=== PATIENT | female | born 1990 | race Caucasian/White ===

== ENCOUNTER 2019-07-12 20:47 | Emergency (ER) | payer OTHER, MEDICAID, SELFPAY ==
[2019-07-12 20:53] VITALS: BP 139/69; PULSE 87; RESP 16; TEMP 36.6; O2SAT 99
--- NOTE | 2019-07-12 21:58 | ED.GENADULT ---
HPI - General Adult General Chief complaint: Ear Stated complaint: lt ear pain Time Seen by Provider: 07/12/19 20:52 Source: patient Mode of arrival: Ambulatory Limitations: no limitations History of Present Illness HPI narrative: 28-year-old female here for evaluation of left ear pain. She was seen in outside facility earlier today and was given a prescription for ear drops. She is allergic to sulfa drugs. She states that she went home and found that there was sulfa in these ear drops. When she put him anterior it did sting her year. Denies any sore throat or sinus congestion. Related Data Allergies Allergy/AdvReac Type Severity Reaction Status Date / Time Penicillins Allergy Severe Wheezing Verified 07/12/19 20:57 Sulfa (Sulfonamide Allergy Severe burning Verified 07/12/19 20:57 Antibiotics) sensation Review of Systems Constitutional Constitutional: Denies fever(s) Eyes Eyes: Denies blurry vision and Denies change in vision ENT Ears, Nose, Mouth, and Throat: Denies neck pain and Denies sore throat Comments: Left ear pain Cardiovascular Cardiovascular: Denies chest pain and Denies dyspnea Respiratory Respiratory: Denies dyspnea Gastrointestinal Gastrointestinal: Denies abdominal pain Musculoskeletal Musculoskeletal: Denies neck pain Integumentary/Breasts Skin/Breast: Denies lesions and Denies rash Neurologic Neurologic: Denies behavioral changes Psychiatric Psychiatric: Denies behavioral changes Patient History Medical History Patient denies medical problems (Acute) Social History Smoking Status: Current every day smoker Smoking Status: Current every day smoker alcohol intake frequency: 3 or more drinks per day Substance Use Type: marijuana Exam Initial Vital Signs Initial Vital Signs: Vital Signs Temperature 97.9 F 07/12/19 20:53 Pulse Rate 87 07/12/19 20:53 Respiratory Rate 16 07/12/19 20:53 Blood Pressure 139/69 07/12/19 20:53 Pulse Oximetry 99 07/12/19 20:53 Const General: cooperative, comfortable and well developed Orientation: alert, awake and oriented x3 HENMT Head: normal to inspection and normocephalic Ears: TM normal on the right and EAC abnormal edema on the left Nose: external nose normal Resp Effort & Inspection: normal respiratory effort Auscultation: clear to auscultation bilaterally Cardio Rate: regular rate Rhythm: regular rhythm Skin Lesions: no lesions Rashes: no rashes Neuro General: alert and awake Cognition: normal cognition Speech: speech normal Extrem General: normal to inspection and capillary refill normal Course Orders Ordered: Discontinued Medications Ciprofloxacin/Dexamethasone (Ciprodex Otic Susp) 4 drops EAR-LEFT NOW ONE Stop: 07/12/19 21:59 Last Admin: 07/12/19 22:14 Dose: 4 drops Documented by: DOMINIC Vital Signs Vital signs: Vital Signs - 8 hr 07/12/19 20:53 07/12/19 22:32 Temperature 97.9 F Pulse Rate 87 70 Respiratory Rate 16 Blood Pressure 139/69 125/62 Pulse Oximetry 99 97 Medical Decision Making MDM Narrative Medical decision making narrative: Right external auditory canal and tympanic membrane unremarkable. Left external auditory canal swollen shut to the point to her could not see the tympanic membrane. Consistent with otitis media. Any year wick was placed. Ciprodex drops were administered. Will patient was sent home with Ciprodex given to her here in the ER with instructions on how to take it. We did discuss the ear wicking care instructions. Suspect otitis externa. Patient was given return precautions and follow-up instructions. She expressed understanding and agreement with plan. Discharge Plan Departure Patient Disposition: Home Clinical Impression: Otitis externa Qualifiers: Otitis externa type: unspecified type Chronicity: acute Laterality: left Qualified Code(s): H60.502 - Unspecified acute noninfective otitis externa, left ear Discharge Date/Time: 07/12/19 22:33 Instructions: DI for Otitis Externa Activity Restrictions/Additional Instructions: Stop the antibiotics your given yesterday and start taking the new antibiotics you were given a bottle for during this visit. Put 3 drops in your left ear 2 times a day for the next 7 days. Contact your primary provider for follow-up.
[2019-07-12] MEDS: CIPROFLOXACIN/DEXAMETH OTIC SUSP 4 DROPS EAR-LEFT (22:14)
[2019-07-12 22:32] VITALS: BP 125/62; PULSE 70; O2SAT 97
== END 2019-07-12 22:33 | disposition home or self-care (01) ==
PROVIDERS: Emergency Provider Emergency Medicine
DX: H60.502 Unspecified acute noninfective otitis externa, left ear (principal)
CPT/HCPCS: 99281; 99282

== ENCOUNTER 2020-01-20 09:36 | Emergency (ER) | payer OTHER, MEDICAID, SELFPAY ==
[2020-01-20 09:47] VITALS: BP 151/63; PULSE 81; RESP 16; TEMP 37.2; O2SAT 100
--- NOTE | 2020-01-20 10:53 | ED.EAR ---
HPI - Ear Problem <Sandy Street PA-C - Last Filed: 01/20/20 11:55> General Chief complaint: Ear Stated complaint: BILATERAL EAR INFECTION Time Seen by Provider: 01/20/20 10:51 Source: patient Mode of arrival: Ambulatory History of Present Illness HPI Narrative: Is a 29-year-old woman current 3/4 pack-a-day smoker with 14 year smoking history with a history bilateral ear problems including otitis and otitis media who reports to the emergency department complaining of ongoing ear pain changes in her hearing, tinnitus, pain under her ears and the back of her chin, and in her frontal and maxillary sinuses which is chronic requesting referral to ear nose and throat. She has ongoing ear pain and discomfort on and off over the last 6 months she was prescribed some Ciprodex and she thinks doxy previously because of her allergies to sulfa and penicillin and this did give her some relief for a few weeks but her symptoms returned. 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 She reports she was previously referred to [facility] by her former primary care physician, but the ENT did not receive the referral and she did not get scheduled in, then COVID happened and her PCP left the practice so she has not been able to reestablish care yet. She also notes the last couple of months she has felt like she has had frequency of urination and urgency with urination. She has had a reduced appetite lately but she lost a couple friends in the last couple months and has been a little bit down in coping with this and under stress because of this and starting a new job she also recently got engaged which is new. She denies nausea, vomiting, fever, chills, shortness of breath, chest pain, abdominal pain, sore throat, neck pain, polydipsia, polyphagia or any other symptoms. MD Complaint: ear pain and decreased hearing Location: bilateral Duration: intermittent Severity: moderate Relieving factors: nothing Exacerbating factors: nothing Associated symptoms ear: decreased hearing (Having trouble determining where sounds come from sometimes), neck pain (Top of the throat just below the ears) and tinnitus (Chronic most of her life) Treatment prior to arrival: none Related Data Previous Rx's Medication Instructions Recorded ciprofloxacin-dexamethasone 4 drop EAR-BOTH BID #7.5 ml 01/20/20 fluticasone propionate 1 spray NASAL BID #19.8 ml 01/20/20 Allergies Allergy/AdvReac Type Severity Reaction Status Date / Time acetaminophen [From Vicodin] Allergy Severe ITCHING Verified 01/20/20 09:50 hydrocodone [From Vicodin] Allergy Severe ITCHING Verified 01/20/20 09:50 Penicillins Allergy Severe Wheezing Verified 01/20/20 09:49 Sulfa (Sulfonamide Allergy Severe burning Verified 01/20/20 09:49 Antibiotics) sensation silver AdvReac Severe ITCHING Verified 01/20/20 09:50 Review of Systems <Sandy Street PA-C - Last Filed: 01/20/20 11:55> Review of Systems Narrative: GENERAL: Denies chills, fatigue, malaise, fever, sweats. HEENT: Positive for sinus pain, ear pain, hearing changes, tinnitus, negative for sore throat, difficulty swallowing, dizziness. RESPIRATORY: Positive for smoker's cough, negative for wheezing, hemoptysis, sputum. CARDIOVASCULAR: Denies chest pain, palpitations, orthopnea, edema, GASTROINTESTINAL: Denies nausea, vomiting, abdominal pain, diarrhea, constipation, melena. : Positive for frequency and urgency, negative for dysuria, incontinence, hematuria, urinary retention. MUSCULOSKELETAL: denies weakness, joint pain, or bony pain SKIN: Denies rash, skin lesions, or other NEUROLOGIC: Denies weakness, headache, numbness, change in speech, confusion, seizures, incoordination. PSYCHIATRIC: No concerning psychosocial issues. 12 point review of systems is negative except for those stated above Patient History <Sandy Street PA-C - Last Filed: 01/20/20 11:55> Medical History Patient denies medical problems (Acute) Social History Smoking Status: Current every day smoker Smoking Status: Current every day smoker alcohol intake frequency: 3 or more drinks per day Substance Use Type: marijuana Exam <Sandy Street PA-C - Last Filed: 01/20/20 11:55> Narrative Exam Narrative: GENERAL: 29 year old patient appears stated age. Well-nourished, well-developed patient, in mild distress. HEAD: Atraumatic. Normocephalic. EYES: Pupils equal round and reactive. Extraocular motions intact. No scleral icterus. No injection or drainage. ENT: Nose without bleeding, purulent drainage. Maxillary sinuses are nontender with palpation and percussion, frontal sinus on the right is nontender, frontal sinus on the left is slightly tender with percussion. Throat without erythema, tonsillar hypertrophy or exudate. External ear canal is slightly generally erythematous in appearance bilaterally, left tympanic membrane is normal in appearance with a possible effusion of non purulence at fluid behind the TM, right think panic membrane has some scarring on the superior border and again a possible effusion. Airway patent. NECK: Trachea midline. She has some tenderness of the tonsillar lymph nodes but they are non enlarged. Otherwise no cervical lymphadenopathy. CARDIOVASCULAR: Regular rate and rhythm without murmurs, gallops, or rubs. RESPIRATORY: Clear to auscultation. Breath sounds equal bilaterally. No wheezes, rales, or rhonchi. GASTROINTESTINAL: Abdomen soft, non-tender, nondistended. EXTREMITIES: No edema or joint tenderness. BACK: Nontender without deformity or crepitance. No flank tenderness. NEURO: AOx3. SKIN: No rash or erythema of visible areas Initial Vital Signs Initial Vital Signs: Vital Signs Temperature 98.9 F 01/20/20 09:47 Pulse Rate 81 01/20/20 09:47 Respiratory Rate 16 01/20/20 09:47 Blood Pressure 151/63 H 01/20/20 09:47 Pulse Oximetry 100 01/20/20 09:47 <Susan Lowry DO - Last Filed: 01/22/20 07:32> Initial Vital Signs Initial Vital Signs: Vital Signs Temperature 98.9 F 01/20/20 09:47 Pulse Rate 81 01/20/20 09:47 Respiratory Rate 16 01/20/20 09:47 Blood Pressure 151/63 H 01/20/20 09:47 Pulse Oximetry 100 01/20/20 09:47 Course <Sandy [address] PA-C - Last Filed: 01/20/20 11:55> Orders Ordered: ED Orders 01/20/20 11:26 Urine Microscopic Stat Vital Signs Vital signs: Vital Signs - 8 hr 01/20/20 09:47 Temperature 98.9 F Pulse Rate 81 Respiratory Rate 16 Blood Pressure 151/63 H Pulse Oximetry 100 <Susan Lowry DO - Last Filed: 01/22/20 07:32> Orders Ordered: ED Orders 01/20/20 11:26 Urine Microscopic Stat Vital Signs Vital signs: Vital Signs - 8 hr 01/20/20 09:47 Temperature 98.9 F Pulse Rate 81 Respiratory Rate 16 Blood Pressure 151/63 H Pulse Oximetry 100 Medical Decision Making <Sandy Street PA-C - Last Filed: 01/20/20 11:55> Differential Diagnosis Differential Diagnosis: otitis externa, otitis media, tinnitus, sinus infection, seasonal allergies Medical Records Medical records reviewed: Yes I reviewed the patient's medical records. Lab Data Lab results reviewed: Yes I reviewed the patient's lab results. Labs: Point of Care Testing Test Results Negative Glucose POC 95 Urine Dip Bedside Urine Glucose Negative Bedside Urine Bilirubin - Negative Bedside Urine Ketone - Negative Urine Specific [place] 1.010 Bedside Urine Occult Blood - Negative Bedside Urine pH 8.0 Bedside Urine Protein - Negative Bedside Urine Urobilinogen - Negative Bedside Urine Nitrite - Negative Bedside Urine Leukocytes - Negative Esterase Point of care testing: Point of Care Testing Test Results Negative Glucose POC 95 Urine Dip Bedside Urine Glucose Negative Bedside Urine Bilirubin - Negative Bedside Urine Ketone - Negative Urine Specific [place] 1.010 Bedside Urine Occult Blood - Negative Bedside Urine pH 8.0 Bedside Urine Protein - Negative Bedside Urine Urobilinogen - Negative Bedside Urine Nitrite - Negative Bedside Urine Leukocytes - Negative Esterase [facility] Narrative Medical decision making narrative: 29-year-old woman with a history of chronic ear discomfort and sinus discomfort presents to the emergency department requesting referral for ENT, as well as evaluation and antibiotics as warranted as her discomfort has been worsening significantly in the last month or so has been going on in general for 6 months now. Differential diagnoses considered include otitis externa, otitis media, tinnitus, sinus infection, seasonal allergies, UTI, , hyperglycemia. Evelyne is he is slightly erythematous she may have a mild otitis externa, she does have an effusion bilaterally, no evidence of an acute otitis media. No UTI based on POC urine, BG WNL, neg . Plan Ciprodex and fluticasone with referral to [facility]. Discussed the plan with the patient, all questions answered, discussed emergency return precautions. Discussed establishing care with a new PCP. <Susan DO Alen - Last Filed: 01/22/20 07:32> Lab Data Labs: Point of Care Testing Test Results Negative Glucose POC 95 Urine Dip Bedside Urine Glucose Negative Bedside Urine Bilirubin - Negative Bedside Urine Ketone - Negative Urine Specific [place] 1.010 Bedside Urine Occult Blood - Negative Bedside Urine pH 8.0 Bedside Urine Protein - Negative Bedside Urine Urobilinogen - Negative Bedside Urine Nitrite - Negative Bedside Urine Leukocytes - Negative Esterase Point of care testing: Point of Care Testing Test Results Negative Glucose POC 95 Urine Dip Bedside Urine Glucose Negative Bedside Urine Bilirubin - Negative Bedside Urine Ketone - Negative Urine Specific [place] 1.010 Bedside Urine Occult Blood - Negative Bedside Urine pH 8.0 Bedside Urine Protein - Negative Bedside Urine Urobilinogen - Negative Bedside Urine Nitrite - Negative Bedside Urine Leukocytes - Negative Esterase Discharge Plan Departure Patient Disposition: Home Clinical Impression: Sinus pressure, Chronic pain of both ears, Urinary frequency, Bilateral tinnitus Otitis externa Qualifiers: Otitis externa type: noninfectious Noninfectious otitis externa type: unspecified noninfectious type Chronicity: chronic Laterality: bilateral Qualified Code(s): H60.63 - Unspecified chronic otitis externa, bilateral Discharge Date/Time: 01/20/20 11:58 Instructions: How to Instill Ear Drops, DI for Sinusitis, DI for Otitis Externa Activity Restrictions/Additional Instructions: Thank you for letting be part of the care in the emergency department today. There is no evidence of an emergent or life threatening illness at this time, but follow up with your doctor in 1-2 days is recommended nonetheless to continue to rule out serious underlying causes of your symptoms. Please call the office for an appointment. Please return to the Emergency Department for any worsening or persistent symptoms. Please take medications as directed. As prescribed use Ciprodex which are ear drops that have antibiotic in them which may give you some relief and I have also prescribed fluticasone which is something that may help with her sinuses and her ear pressure. I have also referred you to Ear Nose and Throat [facility] Dr. Rodriguez however you may see any of the ENT providers in that office whoever is available to schedule you in 1st. You do not have any evidence of a urinary tract infection today. There is also information here to contact [facility] and you can work with them to get you set up for a new primary care provider in the area. Prescriptions: New ciprofloxacin-dexamethasone 0.3-0.1 % drops,suspension 4 drop EAR-BOTH BID Qty: 7.5 RF: 0 fluticasone propionate 50 mcg/actuation spray,suspension 1 spray NASAL BID Qty: 19.8 RF: 0 Referrals: [facility] [Outside] Ravinder Rodriguez MD [Physician] - (chronic bilat ear pain, sinus pressure, tinnitus, hearing changes) Stand Alone Forms: Work Release Note <Susan Lowry DO - Last Filed: 01/22/20 07:32> Cosign ED Attending Cosignature Attestation: I was immediately available in the department for consultation. Documentation has been reviewed. I agree with assessment and plan.
[2020-01-20 11:57] VITALS: BP 148/82; PULSE 84; RESP 16; O2SAT 98
== END 2020-01-20 11:58 | disposition home or self-care (01) ==
PROVIDERS: Emergency Provider Student in an Organized Health Care Education/Training Program
DX: H60.63 Unspecified chronic otitis externa, bilateral (principal); R35.0 Frequency of micturition; H93.13 Tinnitus, bilateral; J34.89 Other specified disorders of nose and nasal sinuses; H92.03 Otalgia, bilateral
CPT/HCPCS: 81003; 81025; 82962; 99282

== ENCOUNTER 2020-04-14 16:58 | Emergency (ER) | payer OTHER, MEDICAID, SELFPAY ==
[2020-04-14 17:04] VITALS: BP 124/70; PULSE 73; RESP 18; TEMP 37.1; O2SAT 97
--- NOTE | 2020-04-14 17:07 | DI.RAD.S_ITS ---
PROCEDURE: XR CHEST 2V INDICATIONS: shortness of breath TECHNIQUE: 2 views of the chest were acquired. COMPARISON: None. FINDINGS: Surgical changes and devices: None. Lungs and pleura: Lungs are clear. No pleural effusions or pneumothorax. Mediastinum: Mediastinal contours are normal. Heart size is normal. Bones and chest wall: No suspicious bony abnormalities. Soft tissues appear unremarkable. IMPRESSION: No acute cardiopulmonary pathology. Dictated by: Tommy Negron M.D. on 04/14/2020 at 17:39 Approved by: Tommy Nergon M.D. on 04/14/2020 at 17:39
[2020-04-14] MEDS: ALBUTEROL HFA PREPACK 1 BOX MISC (17:15)
[2020-04-14 17:23] VITALS: PULSE 71; RESP 16; O2SAT 98
[2020-04-14 18:30] VITALS: BP 106/64; PULSE 54; RESP 18; O2SAT 99
[2020-04-14 18:42] LABS: Add Manual Diff / Slide Review NO; Basophils Absolute Auto 100 /uL (0-100); Basophils Percent Auto 0.7 % (0-2); Eosinophils Absolute Auto 200 /uL (0-450); Eosinophils Percent Auto 1.9 % (2-4); Hematocrit 40.4 % (36-46); Hemoglobin 13.6 g/dL (12.0-16.0); Lymphocytes Absolute Auto 2600 /uL (1100-4500); Lymphocytes Percent Auto 23.7 % (25-40); Mean Corpuscular HGB Conc 33.6 % (30-36); Mean Corpuscular Hemoglobin 32.2 PG (26-34); Mean Corpuscular Volume 95.6 fL (80-100); Monocytes Absolute Auto 500 /uL (0-900); Monocytes Percent Auto 4.6 % (3-14); Neutrophils Absolute Auto 7700 /uL (1500-7000); Neutrophils Percent Auto 69.1 % (50-75); Platelet Count 259 X10^3/uL (150-400); Red Blood Cell Count 4.23 X10^6/uL (4.0-5.2); Red Cell Distribution Width 13.4 % (11.6-14.8); White Blood Cell Count 11.2 X10^3/uL (4.5-11.0)
[2020-04-14 18:49] LABS: INR 1.1 (0.9-1.3); Prothrombin Time 12.2 SECONDS (10.1-12.7)
--- NOTE | 2020-04-14 18:49 | ED_ITS ---
HPI - Chest Pain <Carlos Burnett [facility] - Last Filed: 04/14/20 21:14> General Chief Complaint: Upper Respiratory Symptoms Stated Complaint: CHEST PAIN COUGH Time Seen by Provider: 04/14/20 17:27 Source: patient Mode of arrival: Ambulatory Limitations: no limitations History of Present Illness HPI narrative: This is a 29-year-old female, smoker, who has no contributory history presents to ED with chief complain of right-sided chest pain that is exertional and worse in supine position which is constant for about a week. Patient reports pain is in sharp character and reports mild short of breath, productive cough, and mild nausea. She denies dizziness or diaphoresis. Patient denies abdominal pain or urinary symptoms. LMP was 04/01/2020. 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 Patient denies fever or history of asthma. Patient denies significant family history of cardiac disease. Denies history of blood clots, cardiac disease, pro longed bed rest, recent surgery, or taking estrogen. Related Data Home Medications Medication Instructions Recorded Confirmed No Known Home Medications 04/14/20 04/14/20 Allergies Allergy/AdvReac Type Severity Reaction Status Date / Time hydrocodone [From Vicodin] Allergy Severe ITCHING Verified 01/20/20 09:50 Penicillins Allergy Severe Wheezing Verified 04/14/20 17:07 Sulfa (Sulfonamide Allergy Severe burning Verified 04/14/20 17:07 Antibiotics) sensation silver AdvReac Severe ITCHING Verified 04/14/20 17:07 Review of Systems <Carlos Burnett [facility] - Last Filed: 04/14/20 21:14> Review of Systems Narrative: General: Denies fever, chills, fatigue, malaise, sweats. HEENT: Denies sinus pain, ear pain, sore throat, difficulty swallowing, dizziness. Respiratory: See HPI Cardiovascular: HPI Gastrointestinal: Denies (+) mild nausea, vomiting, abdominal pain, diarrhea, constipation, melena. : Denies dysuria, frequency, incontinence, hematuria, urinary retention. Musculoskeletal: Denies weakness, joint pain or bony pain. Skin: Denies rash, skin lesions, or other. Neurologic: Denies weakness, headache, numbness, change in speech, confusion, seizures, incoordination. Psychiatric: No concerning psychosocial issues. 12-point review of systems is negative except for those stated above. Patient History <ALEXANDRA Patel - Last Filed: 04/14/20 21:14> Medical History Patient denies medical problems (Acute) Social History Smoking Status: Current every day smoker Smoking Status: Current every day smoker alcohol intake frequency: 0-2 drinks per day Substance Use Type: marijuana Exam <ALEXANDRA Patel - Last Filed: 04/14/20 21:14> Narrative Exam Narrative: GEN: Alert, oriented x 3, well appearing and nourished, and in no acute distress. Head: Normal cephalic, atraumatic. No scalp or temporal tenderness, palpable mass or rash. EYES: Pupils are equal, round, and reactive to light and accommodation. Extraocular muscles are intact bilaterally. There is no subconjunctival hemorrhage, exudate and sclera non-icteric. ENT: Hearing grossly intact. Nose without bleeding, purulent discharge or deviation. Mucous membrane moist, no mucosal lesion. Throat without erythema, tonsillar hypertrophy or exudate. Uvula in midline, airway patent. Neck: Trachea in midline. No JVD, non-tender without lymphadenopathy. No masses or thyroid megaly. Supple, non-tender and no meningeal signs. CARDIAC: Normal regular rate and rhythm without murmurs, gallops, or rubs. No chest wall tenderness. No peripheral edema, cyanosis or pallor. Capillary refill is less than 2 seconds. RESPIRATORY: Lungs are clear to auscultate bilaterally. Occasional moist cough. No wheezes, rales, or rhonchi. No stridor, respiratory distress, increase work of breathing, or accessary muscle used. ABD: Abdomen soft, nontender and non-distended. No guarding or rebound tenderness to palpate. Bowel sounds are normal in all 4 quadrants. There is no palpable masses or organomegaly. EXT: Full painless ROM of all extremities with no loss of sensation, strength, effusion or edema. SKIN: Warm, dry, normal color for patient. No erythema, lesions or rash over visible areas. BACK: Nontender without deformity or crepitance. No flank tenderness. NEUROLOGICAL: Alert and oriented to place, time and person. Sensation and motor function intact bilaterally. No facial droops, dysphasia. PSYCHIATRIC: Good judgement and reason, without hallucinations, abnormal affect or abnormal behaviors during the examination. Patient is not suicidal. Initial Vital Signs Initial Vital Signs: Vital Signs Temperature 98.8 F 04/14/20 17:04 Pulse Rate 73 04/14/20 17:04 Respiratory Rate 18 04/14/20 17:04 Blood Pressure 124/70 04/14/20 17:04 Pulse Oximetry 97 04/14/20 17:04 <Susan Lowry DO - Last Filed: 04/20/20 07:35> Initial Vital Signs Initial Vital Signs: Vital Signs Temperature 98.8 F 04/14/20 17:04 Pulse Rate 73 04/14/20 17:04 Respiratory Rate 18 04/14/20 17:04 Blood Pressure 124/70 04/14/20 17:04 Pulse Oximetry 97 04/14/20 17:04 Scores <ALEXANDRA Patel - Last Filed: 04/14/20 21:14> GCS Jing coma scale eye opening: Spontaneous Lyons coma scale verbal response: Orientated Lyons coma scale motor response: Obey commands Lyons coma scale total score: 15 HEART Score Heart Score history: Slightly Suspicious Heart Score EKG: Normal Heart Score Age: < 45 years old Heart Score risk factors: No known risk factors Heart Score troponin: < or = to normal limit Heart Score Total: 0 Wells' Criteria for PE Clinical signs and symptoms of DVT: No PE is #1 Dx or equally likely: No Heart rate > 100: No Immobilization at least 3 days or surg in previous 4 weeks: No History of PE or DVT: No Hemoptysis: No Malignancy w/Treatment within 6 months or palliative: No Wells' PE Score total: 0 Course <ALEXANDRA Patel - Last Filed: 04/14/20 21:14> Orders Ordered: Discontinued Medications Albuterol (Ventolin Hfa Prepack) 1 box [facility] [place] LIVIERINSTR ONE Stop: 04/14/20 17:13 Last Admin: 04/14/20 17:15 Dose: 1 box Documented by: REX Vital Signs Vital signs: Vital Signs - 8 hr 04/14/20 17:04 04/14/20 17:23 04/14/20 18:30 Temperature 98.8 F Pulse Rate 73 71 54 L Respiratory Rate 18 16 18 Blood Pressure 124/70 106/64 Pulse Oximetry 97 98 99 <Susan Lowry DO - Last Filed: 04/20/20 07:35> Orders Ordered: Discontinued Medications Albuterol (Ventolin Hfa Prepack) 1 box MISC SEEINSTR ONE Stop: 04/14/20 17:13 Last Admin: 04/14/20 17:15 Dose: 1 box Documented by: REX Vital Signs Vital signs: Vital Signs - 8 hr 04/14/20 17:04 04/14/20 17:23 04/14/20 18:30 Temperature 98.8 F Pulse Rate 73 71 54 L Respiratory Rate 18 16 18 Blood Pressure 124/70 106/64 Pulse Oximetry 97 98 99 MDM - Chest Pain <ALEXANDRA Patel - Last Filed: 04/14/20 21:14> Differential Diagnosis Differential diagnosis: Likely pneumothorax, atypical chest pain, costochondritis and other (Pneumonia, pulmonary embolism, reactive airway disease, upper respiratory infection) Medical Records Data Attestation: I reviewed the patient's medical records. Lab Data Attestation: I reviewed the patient's lab results. Result diagrams: 04/14/20 18:20 04/14/20 18:20 Labs: Lab Results 04/14/20 04/14/20 04/14/20 Range/Units 18:20 18:20 18:20 WBC 11.2 H (4.5-11.0) X10^3/uL RBC 4.23 (4.0-5.2) X10^6/uL Hgb 13.6 (12.0-16.0) g/dL Hct 40.4 (36-46) % MCV 95.6 (80-100) fL MCH 32.2 (26-34) PG MCHC 33.6 (30-36) % RDW 13.4 (11.6-14.8) % Plt Count 259 (150-400) X10^3/uL Neut % (Auto) 69.1 (50-75) % Lymph % (Auto) 23.7 L (25-40) % [place] % (Auto) 4.6 (3-14) % Eos % (Auto) 1.9 L (2-4) % Baso % (Auto) 0.7 (0-2) % Neut # (Auto) 7700 H (5584-7281) /uL Lymph # (Auto) 2600 (8357-0039) /uL [place] # (Auto) 500 (0-900) /uL Eos # (Auto) 200 (0-450) /uL Baso # (Auto) 100 (0-100) /uL PT 12.2 (10.1-12.7) SECONDS INR 1.1 (0.9-1.3) APTT 40 H (26.4-36.2) SECONDS D-Dimer < 200 (<230) ng/mL Sodium 138 (137-145) mmol/L Potassium 3.8 (3.4-5.1) mmol/L Chloride 104 (98-107) mmol/L Carbon Dioxide 29 (22-32) mmol/L BUN 9 (7-17) mg/dL Creatinine 0.63 (0.52-1.04) mg/dL Estimated GFR > 60.0 (>60) mL/min BUN/Creatinine Ratio 14.3 (6-22) Glucose 96 (70-100) mg/dL Calcium 8.7 (8.4-10.2) mg/dL Total Bilirubin 0.2 (0.2-1.3) mg/dL AST 24 (14-36) IU/L ALT 14 (<35) IU/L Alkaline Phosphatase 61 (38-126) U/L Total Creatine Kinase 167 H (30-135) U/L CK-MB (CK-2) 1.13 (<2.37) ng/mL CK-MB (CK-2) Rel Index 0.7 L (1.5-5.0) % Troponin I < 0.012 (0.01-0.034) ng/mL Total Protein 7.1 (6.3-8.2) g/dL Albumin 4.1 (3.5-5.0) g/dL Globulin 3.0 (1.7-4.1) g/dL Albumin/Globulin Ratio 1.4 (1.0-2.8) Lipase 233 (23-300) U/L COVID-19 PCR (Negative) 04/14/20 Range/Units 19:40 WBC (4.5-11.0) X10^3/uL RBC (4.0-5.2) X10^6/uL Hgb (12.0-16.0) g/dL Hct (36-46) % MCV (80-100) fL MCH (26-34) PG MCHC (30-36) % RDW (11.6-14.8) % Plt Count (150-400) X10^3/uL Neut % (Auto) (50-75) % Lymph % (Auto) (25-40) % [place] % (Auto) (3-14) % Eos % (Auto) (2-4) % Baso % (Auto) (0-2) % Neut # (Auto) (3966-7215) /uL Lymph # (Auto) (8793-8893) /uL [place] # (Auto) (0-900) /uL Eos # (Auto) (0-450) /uL Baso # (Auto) (0-100) /uL PT (10.1-12.7) SECONDS INR (0.9-1.3) APTT (26.4-36.2) SECONDS D-Dimer (<230) ng/mL Sodium (137-145) mmol/L Potassium (3.4-5.1) mmol/L Chloride (98-107) mmol/L Carbon Dioxide (22-32) mmol/L BUN (7-17) mg/dL Creatinine (0.52-1.04) mg/dL Estimated GFR (>60) mL/min BUN/Creatinine Ratio (6-22) Glucose (70-100) mg/dL Calcium (8.4-10.2) mg/dL Total Bilirubin (0.2-1.3) mg/dL AST (14-36) IU/L ALT (<35) IU/L Alkaline Phosphatase (38-126) U/L Total Creatine Kinase (30-135) U/L CK-MB (CK-2) (<2.37) ng/mL CK-MB (CK-2) Rel Index (1.5-5.0) % Troponin I (0.01-0.034) ng/mL Total Protein (6.3-8.2) g/dL Albumin (3.5-5.0) g/dL Globulin (1.7-4.1) g/dL Albumin/Globulin Ratio (1.0-2.8) Lipase (23-300) U/L COVID-19 PCR Negative (Negative) Point of Care Testing Test Results Negative Urine Dip Bedside Urine Glucose Negative Bedside Urine Bilirubin - Negative Bedside Urine Ketone - Negative Urine Specific [place] 1.020 Bedside Urine Occult Blood - Negative Bedside Urine pH 6.0 Bedside Urine Protein - Negative Bedside Urine Urobilinogen - Negative Bedside Urine Nitrite - Negative Bedside Urine Leukocytes - Negative Esterase Imaging Data Chest x-ray: Radiologist's Impression: [address] [address] XRay Report Signed Patient: Arabella Pratt DMR#: [id number] : 1990Acct:[id number] Age/Sex: 29 / FDate of Service: 04/14/20 Loc: ED Accession Number: [id number] Procedure: XR chest 2V Ordering Provider: Carlos Burnett PROCEDURE: XR CHEST 2V INDICATIONS: shortness of breath TECHNIQUE: 2 views of the chest were acquired. COMPARISON: None. FINDINGS: Surgical changes and devices: None. Lungs and pleura: Lungs are clear. No pleural effusions or pneumothorax. Mediastinum: Mediastinal contours are normal. Heart size is normal. Bones and chest wall: No suspicious bony abnormalities. Soft tissues appear unremarkable. IMPRESSION: No acute cardiopulmonary pathology. Dictated by: Tommy Negron M.D. on 04/14/2020 at 17:39 Approved by: Tommy Negron M.D. on 04/14/2020 at 17:39 ECG Data Attestation: I personally reviewed and interpreted this ECG as follows: Prior ECG tracings: not available for review Interpretation: Sinus rhythm rate at 64. Normal [place]. ME interval 141, QRS duration 94, QT/QTC 404/413. No acute ST changes MDM Narrative Medical decision making narrative: This is a 29-year-old female who presents to ED with occasional productive cough, exertional and pleuritic chest pain for last 1 week. Patient denies constitutional symptoms. She works at [employer]- [employer] at the [email or web address] and unsure of exposure to Covid. Patient does not have history of known asthma or reactive airway disease. Patient received albuterol inhaler treatment before assessed by myself. Patient does not have increased work of breathing, wheezing, or rhonchi. Unremarkable phys ical exam. Heart score is 0. Wells criteria for PE is 0. EKG was normal sinus rhythm without acute ST changes. Chest x-ray shows no acute findings including pneumonia or pneumothorax. Mild leukocytosis of 11.2. Slightly prolonged APTT of 40. Negative D-dimer. Of CK of 167 with normal CK-MB, index, and negative troponin. Normal lipase. Covid test was negative. Given patient has symptoms for about a week no repeat cardiac enzymes were done. Patient's chest pain is not likely from cardiac in origin. Will treat patient with albuterol inhaler as needed for her symptoms for upper respiratory infection/reactive airway disease. Patient advised to quit smoking. Return precautions were discussed with patient and patient verbalized understanding and in agreement with treatment plan. Off work note provided for 2 days. Advised continue to use good hand hygiene and to wear mask. <Susan Lowry, DO - Last Filed: 04/20/20 07:35> Lab Data Labs: Lab Results 04/14/20 04/14/20 04/14/20 Range/Units 18:20 18:20 18:20 WBC 11.2 H (4.5-11.0) X10^3/uL RBC 4.23 (4.0-5.2) X10^6/uL Hgb 13.6 (12.0-16.0) g/dL Hct 40.4 (36-46) % MCV 95.6 (80-100) fL MCH 32.2 (26-34) PG MCHC 33.6 (30-36) % RDW 13.4 (11.6-14.8) % Plt Count 259 (150-400) X10^3/uL Neut % (Auto) 69.1 (50-75) % Lymph % (Auto) 23.7 L (25-40) % Weston % (Auto) 4.6 (3-14) % Eos % (Auto) 1.9 L (2-4) % Baso % (Auto) 0.7 (0-2) % Neut # (Auto) 7700 H (4155-0278) /uL Lymph # (Auto) 2600 (0479-1500) /uL [place]on # (Auto) 500 (0-900) /uL Eos # (Auto) 200 (0-450) /uL Baso # (Auto) 100 (0-100) /uL PT 12.2 (10.1-12.7) SECONDS INR 1.1 (0.9-1.3) APTT 40 H (26.4-36.2) SECONDS D-Dimer < 200 (<230) ng/mL Sodium 138 (137-145) mmol/L Potassium 3.8 (3.4-5.1) mmol/L Chloride 104 (98-107) mmol/L Carbon Dioxide 29 (22-32) mmol/L BUN 9 (7-17) mg/dL Creatinine 0.63 (0.52-1.04) mg/dL Estimated GFR > 60.0 (>60) mL/min BUN/Creatinine Ratio 14.3 (6-22) Glucose 96 (70-100) mg/dL Calcium 8.7 (8.4-10.2) mg/dL Total Bilirubin 0.2 (0.2-1.3) mg/dL AST 24 (14-36) IU/L ALT 14 (<35) IU/L Alkaline Phosphatase 61 (38-126) U/L Total Creatine Kinase 167 H (30-135) U/L CK-MB (CK-2) 1.13 (<2.37) ng/mL CK-MB (CK-2) Rel Index 0.7 L (1.5-5.0) % Troponin I < 0.012 (0.01-0.034) ng/mL Total Protein 7.1 (6.3-8.2) g/dL Albumin 4.1 (3.5-5.0) g/dL Globulin 3.0 (1.7-4.1) g/dL Albumin/Globulin Ratio 1.4 (1.0-2.8) Lipase 233 (23-300) U/L COVID-19 PCR (Negative) 04/14/20 Range/Units 19:40 WBC (4.5-11.0) X10^3/uL RBC (4.0-5.2) X10^6/uL Hgb (12.0-16.0) g/dL Hct (36-46) % MCV (80-100) fL MCH (26-34) PG MCHC (30-36) % RDW (11.6-14.8) % Plt Count (150-400) X10^3/uL Neut % (Auto) (50-75) % Lymph % (Auto) (25-40) % [place] % (Auto) (3-14) % Eos % (Auto) (2-4) % Baso % (Auto) (0-2) % Neut # (Auto) (1672-3652) /uL Lymph # (Auto) (7967-8768) /uL [place] # (Auto) (0-900) /uL Eos # (Auto) (0-450) /uL Baso # (Auto) (0-100) /uL PT (10.1-12.7) SECONDS INR (0.9-1.3) APTT (26.4-36.2) SECONDS D-Dimer (<230) ng/mL Sodium (137-145) mmol/L Potassium (3.4-5.1) mmol/L Chloride (98-107) mmol/L Carbon Dioxide (22-32) mmol/L BUN (7-17) mg/dL Creatinine (0.52-1.04) mg/dL Estimated GFR (>60) mL/min BUN/Creatinine Ratio (6-22) Glucose (70-100) mg/dL Calcium (8.4-10.2) mg/dL Total Bilirubin (0.2-1.3) mg/dL AST (14-36) IU/L ALT (<35) IU/L Alkaline Phosphatase (38-126) U/L Total Creatine Kinase (30-135) U/L CK-MB (CK-2) (<2.37) ng/mL CK-MB (CK-2) Rel Index (1.5-5.0) % Troponin I (0.01-0.034) ng/mL Total Protein (6.3-8.2) g/dL Albumin (3.5-5.0) g/dL Globulin (1.7-4.1) g/dL Albumin/Globulin Ratio (1.0-2.8) Lipase (23-300) U/L COVID-19 PCR Negative (Negative) Point of Care Testing Test Results Negative Urine Dip Bedside Urine Glucose Negative Bedside Urine Bilirubin - Negative Bedside Urine Ketone - Negative Urine Specific [place] 1.020 Bedside Urine Occult Blood - Negative Bedside Urine pH 6.0 Bedside Urine Protein - Negative Bedside Urine Urobilinogen - Negative Bedside Urine Nitrite - Negative Bedside Urine Leukocytes - Negative Esterase Discharge Plan Departure Patient Disposition: Home Clinical Impression: Atypical chest pain Upper respiratory infection Qualifiers: URI type: unspecified URI Qualified Code(s): J06.9 - Acute upper respiratory infection, unspecified Discharge Date/Time: 04/14/20 19:49 Instructions: DI for Viral Upper Respiratory Infection -- Adult, DI for Atypical Chest Pain Activity Restrictions/Additional Instructions: You have been diagnosed with [atypical chest pain likely from cough/upper respiratory infection. EKG, chest x-ray, lab tests are assuring. No elevation in cardiac enzymes or D-dimers. You will receive a phone call from us with a Covid swab result. Please continue to use mask and good hand hygiene practice.]. What to do: *Take your medications as directed. You can take [id number] Tylenol or Motrin as needed for discomfort. Please continue to use albuterol inhaler 2 puffs every 4-6 hours as needed for chest tightness, frequent cough, short of breath, or wheezing. *Follow up with your primary care provider in 2-3 days, call for an appointment. Let them know you were seen in the ED and that we asked you to be seen in [facility]. *Return to ED if you have any new, worsening, or concerning symptoms, such as [worsening or different chest pain, fever, cough, short of breath, unable to tolerate fluids, or any acute concerns]. Prescriptions: No Action No Known Home Medications RF: 0 Referrals: Fer Yung MD [Non-Staff] - Stand Alone Forms: Work Release Note <Susan Lowry DO - Last Filed: 04/20/20 07:35> Cosign ED Attending Guillermo Attestation: I was immediately available in the department for consultation. Documentation has been reviewed. I agree with assessment and plan.
[2020-04-14 18:52] LABS: PTT Partial Thromboplastin Tim 40 SECONDS (26.4-36.2)
[2020-04-14 18:55] LABS: Alanine Aminotransferase 14 IU/L (<35); Albumin 4.1 g/dL (3.5-5.0); Albumin Globulin Ratio 1.4 (1.0-2.8); Alkaline Phosphatase 61 U/L (38-126); Aspartate Aminotransferase 24 IU/L (14-36); BUN Creatinine Ratio 14.3 (6-22); Bilirubin Total 0.2 mg/dL (0.2-1.3); Blood Urea Nitrogen 9 mg/dL (7-17); Calcium 8.7 mg/dL (8.4-10.2); Carbon Dioxide 29 mmol/L (22-32); Chloride 104 mmol/L (98-107); Creatine Kinase 167 U/L (30-135); Estimated Glomerular Filt Rate > 60.0 mL/min (>60); Glucose 96 mg/dL (70-100); HEMOLYSIS < 15 (0-50); Lipase 233 U/L (23-300); Potassium 3.8 mmol/L (3.4-5.1); Sodium 138 mmol/L (137-145); Total Protein 7.1 g/dL (6.3-8.2)
[2020-04-14 19:03] LABS: D Dimer < 200 ng/mL (<230)
[2020-04-14 19:06] LABS: Troponin I < 0.012 ng/mL (0.01-0.034)
[2020-04-14 19:27] LABS: CKMB % Relative Index 0.7 % (1.5-5.0); Creatine Kinase MB 1.13 ng/mL (<2.37)
[2020-04-14 20:07] LABS: COVID19 -Nasal RAPID Negative (Negative)
== END 2020-04-14 19:49 | disposition home or self-care (01) ==
PROVIDERS: Emergency Provider Nurse Practitioner Family
DX: R07.89 Other chest pain (principal); J06.9 Acute upper respiratory infection, unspecified; R06.02 Shortness of breath; R11.0 Nausea
CPT/HCPCS: 36415; 71046; 80053; 81003; 81025; 82550; 82553; 83690; 84484; 85025; 85379; 85610; 85730; 87635; 93005; 93010; 94150; 94640; 99284